=== PATIENT | female | born 1965 ===

== ENCOUNTER 2017-03-19 14:33 | Emergency (ER) | payer MEDICAID ==
[2017-03-19 14:52] VITALS: BP 132/78; PULSE 73; RESP 20; TEMP 98.2; O2SAT 99
--- NOTE | 2017-03-19 15:42 | ED PDOC ---
HPI: Abdomen Time Seen by Provider: 03/19/17 15:30 Chief Complaint (Nursing): Abdominal Pain History Per: Patient History/Exam Limitations: no limitations Onset/Duration Of Symptoms: Gradual (6 weeks worse today) Current Symptoms Are (Timing): Still Present Severity: Mild Location Of Pain/Discomfort: Other (right flank rads to rlq) Quality Of Discomfort: Sharp Associated Symptoms: Nausea, Vomiting. denies: Fever, Chills, Diarrhea, Back Pain, Chest Pain, Constipation, Urinary Symptoms Exacerbating Factors: None Alleviating Factors: None Last Bowel Movement: Yesterday Additional History Per: Patient Additional Complaint(s): c/o ruq abd pain intermittently x6 weeks. pt also c/o vomiting, denies diarrhea Past Medical History Reviewed: Historical Data, Nursing Documentation, Vital Signs Vital Signs: Last Vital Signs Temp 98.2 F 03/19/17 14:48 Pulse 73 03/19/17 14:48 Resp 20 03/19/17 14:48 BP 132/78 03/19/17 14:48 Pulse Ox 99 03/19/17 15:44 - Medical History PMH: No Chronic Diseases - Living Arrangements Living Arrangements: With Family - Social History Current smoker - smoking cessation education provided: No - Allergies Allergies/Adverse Reactions: Allergies Allergy/AdvReac Type Severity Reaction Status Date / Time No Known Allergies Allergy Verified 03/19/17 14:48 Review of Systems ROS Statement: Except As Marked, All Systems Reviewed And Found Negative Constitutional: Negative for: Fever, Chills Cardiovascular: Negative for: Chest Pain, Palpitations Respiratory: Negative for: Cough, Shortness of Breath Gastrointestinal: Positive for: Nausea, Vomiting, Abdominal Pain Genitourinary Female: Negative for: Dysuria, Hematuria, Pelvic Pain Physical Exam - Reviewed Nursing Documentation Reviewed: Yes Vital Signs Reviewed: Yes - Physical Exam Appears: Positive for: Uncomfortable Head Exam: Positive for: ATRAUMATIC, NORMAL INSPECTION, NORMOCEPHALIC Eye Exam: Positive for: Normal appearance, EOMI Neck: Positive for: Normal, Painless ROM, Supple Cardiovascular/Chest: Positive for: Regular Rate, Rhythm, Chest Non Tender. Negative for: Edema, Gallop, Murmur, Bradycardia, Tachycardia, Ectopy Respiratory: Positive for: Normal Breath Sounds. Negative for: Decreased Breath Sounds, Accessory Muscle Use, Crackles, Rales, Rhonchi, Stridor, Wheezing Gastrointestinal/Abdominal: Positive for: Normal Exam, Bowel Sounds, Soft. Negative for: Tenderness Back: Positive for: Normal Inspection. Negative for: L CVA Tenderness, R CVA Tenderness Extremity: Positive for: Normal ROM. Negative for: Tenderness, Pedal Edema, Calf Tenderness, Capillary Refill, Deformity Neurologic/Psych: Positive for: Alert, asset administrator II-XII, Oriented. Negative for: Motor/Sensory Deficits - ECG ECG: Positive for: Interpreted By Me ECG Rhythm: Positive for: Normal QRS, Normal ST Segment, Sinus Rhythm. Negative for: ST/T Changes Interpretation Of Abn EKG: rate of 60 no evidence of ischemia O2 Sat by Pulse Oximetry: 99 Pulse Ox Interpretation: Normal - Radiology X-Ray: Interpreted by Me X-Ray Interpretation: No Acute Disease
[2017-03-19 16:30] LABS: BASO # 0.1 K/uL (0.0-0.2); BASO % 0.8 % (0.0-2.0); EOS # 0.1 K/uL (0.0-0.7); EOS % 0.6 % (0.0-4.0); HEMOGLOBIN 11.9 g/dL (12.0-16.0); LYMPH # 3.1 K/uL (1.0-4.3); LYMPH % 33.3 % (20.0-40.0); MEAN CELL VOLUME 88.9 fl (81.0-99.0); MEAN CORPUSCULAR HEMOGLOBIN 29.4 pg (27.0-31.0); MEAN CORPUSCULAR HGB CONC 33.1 g/dL (33.0-37.0); MEAN PLATELET VOLUME 8.1 fl (7.2-11.7); MONO # 0.7 K/uL (0.0-0.8); MONO % 7.2 % (0.0-10.0); NEUT # 5.5 K/uL (1.8-7.0); NEUT % 58.1 % (50.0-75.0); RBC 4.03 Mil/uL (3.80-5.20); RED CELL DISTRIBUTION WIDTH 14.8 % (11.5-14.5); WHITE BLOOD COUNT 9.4 K/uL (4.8-10.8)
[2017-03-19 16:47] LABS: ALB/GLOB RATIO 1.3 (1.0-2.1); ALBUMIN 3.8 g/dL (3.5-5.0); ALT/SGPT 39 U/L (9-52); AMYLASE 81 U/L (30-110); AST/SGOT 23 U/L (14-36); BLOOD UREA NITROGEN 15 mg/dl (7-17); CALCIUM 9.1 mg/dL (8.4-10.2); GFR AFRICAN-AMERICAN > 60; GFR NON-AFRICAN AMERICAN > 60; LIPASE 51 U/L (23-300)
[2017-03-19 16:55] LABS: SQUAMOUS EPITHIAL 2 /hpf (0-5); URINE BILIRUBIN NEGATIVE (NEGATIVE); URINE BLOOD NEGATIVE (NEGATIVE); URINE CLARITY SLIGHTY-CLOUDY (Clear); URINE COLOR YELLOW (YELLOW); URINE GLUCOSE (UA) NEG (Normal); URINE LEUKOCYTE ESTERASE NEG Leu/uL (Negative); URINE NITRATE NEGATIVE (NEGATIVE); URINE PROTEIN NEGATIVE (NEGATIVE); URINE UROBILINOGEN 0.2-1.0 mg/dL (0.2-1.0)
--- NOTE | 2017-03-19 18:29 | US ---
HISTORY: pain COMPARISON: CT abdomen and pelvis without oral or IV contrast performed 03/19/17 TECHNIQUE: Sonographic evaluation of the right upper quadrant of the abdomen. FINDINGS: LIVER: Measures 17.0 cm in length. Echogenic liver may be seen in setting of hepatic parenchymal disease or fatty infiltration. No focal hepatic mass identified. The main portal vein appears patent with normal directional flow. No intrahepatic bile duct dilatation. GALLBLADDER: The gallbladder limits evaluation. Gallstones. Wall thickness cannot be adequately assessed. Negative sonographic Degroot's sign as assessed by the integrated circuit fabricator. COMMON BILE DUCT: Measures 5 mm. PANCREAS: Not well-visualized. RIGHT KIDNEY: Measures 11.1 x 4.9 x 4.0 cm. No obstructing calculus or hydronephrosis identified. AORTA: Limited visualization appears grossly unremarkable. IVC: Limited visualization appears grossly unremarkable. OTHER FINDINGS: None . IMPRESSION: Hepatic steatosis. Contracted gallbladder limits evaluation. Cholelithiasis. Gallbladder wall thickness cannot be adequately assessed. Negative sonographic Degroot's sign as assessed by the integrated circuit fabricator.
--- NOTE | 2017-03-19 18:35 | RAD ---
HISTORY: abd pain COMPARISON: None available TECHNIQUE: Chest, one view. FINDINGS: Emanation limited by habitus. LUNGS: No focal consolidation. Please note that chest x-ray has limited sensitivity for the detection of pulmonary masses. PLEURA: No significant pleural effusion identified. No definite pneumothorax . CARDIOVASCULAR: The cardiomediastinal silhouette appears within normal limits of size. OSSEOUS STRUCTURES: No acute osseous abnormality identified. VISUALIZED UPPER ABDOMEN: Unremarkable. OTHER FINDINGS: None. IMPRESSION: No focal consolidation, significant pleural effusion, or definite pneumothorax identified.
--- NOTE | 2017-03-19 18:44 | CT ---
PROCEDURE: CT Abdomen and Pelvis without intravenous contrast HISTORY: R flank pain r/o renal stone COMPARISON: None. TECHNIQUE: Technique. Contrast Dose: Radiation dose: Total exam DLP = mGy-cm. This CT exam was performed using one or more of the following dose reduction techniques: Automated exposure control, adjustment of the mA and/or kV according to patient size, and/or use of iterative reconstruction technique. FINDINGS: LOWER THORAX: Unremarkable. LIVER: Unremarkable. No gross lesion or ductal dilatation. GALLBLADDER AND BILE DUCTS: Gallstones.. PANCREAS: Unremarkable. No gross lesion or ductal dilatation. SPLEEN: Unremarkable. ADRENALS: Unremarkable. No mass. KIDNEYS AND URETERS: Unremarkable. No hydronephrosis. No solid mass. VASCULATURE: Unremarkable. No aortic aneurysm. BOWEL: Unremarkable. No obstruction. No gross mural thickening. APPENDIX: Unremarkable. Normal appendix. PERITONEUM: Unremarkable. No free fluid. No free air. LYMPH NODES: Unremarkable. No enlarged lymph nodes. BLADDER: Unremarkable. REPRODUCTIVE: Unremarkable. BONES: No acute fracture. OTHER FINDINGS: None. IMPRESSION: No hydronephrosis or renal calculi.
--- NOTE | 2017-03-19 19:56 | ED PDOC ---
- Laboratory Results Result Diagrams: 03/19/17 16:19 03/19/17 16:19 - ECG O2 Sat by Pulse Oximetry: 99 Pulse Ox Interpretation: Normal Medical Decision Making Medical Decision Making: recd on endorsement from Dr Roberto 515pm pending imaging. Accession No. : [id number] Patient Name / ID : MUMTAZ BONILLA / [id number] Exam Date : 03/19/2017 17:41:11 ( Approved ) Study Comment : Sex / Age : F / 51Y Creator : Mayuri Mario MD Dictator : Mayuri Mario MD Senior Abap Developer : Substitute Nurse : Mayuri Mario MD Approver2 : Report Date : 03/19/2017 18:28:08 My Comment : HISTORY: pain COMPARISON: CT abdomen and pelvis without oral or IV contrast performed 03/19/17 TECHNIQUE: Sonographic evaluation of the right upper quadrant of the abdomen. FINDINGS: LIVER: Measures 17.0 cm in length. Echogenic liver may be seen in setting of hepatic parenchymal disease or fatty infiltration. No focal hepatic mass identified. The main portal vein appears patent with normal directional flow. No intrahepatic bile duct dilatation. GALLBLADDER: The gallbladder limits evaluation. Gallstones. Wall thickness cannot be adequately assessed. Negative sonographic Degroot's sign as assessed by the electric shovel operator. COMMON BILE DUCT: Measures 5 mm. PANCREAS: Not well-visualized. RIGHT KIDNEY: Measures 11.1 x 4.9 x 4.0 cm. No obstructing calculus or hydronephrosis identified. AORTA: Limited visualization appears grossly unremarkable. IVC: Limited visualization appears grossly unremarkable. OTHER FINDINGS: None . IMPRESSION: Hepatic steatosis. Contracted gallbladder limits evaluation. Cholelithiasis. Gallbladder wall thickness cannot be adequately assessed. Negative sonographic Degroot's sign as assessed by the electric shovel operator. Accession No. : [id number] Patient Name / ID : MUMTAZ BONILLA / [id number] Exam Date : 03/19/2017 18:01:10 ( Approved ) Study Comment : Sex / Age : F / 51Y Creator : Travon Sethi MD Dictator : Travon Sethi MD Senior Abap Developer : Substitute Nurse : Travon Sethi MD Approver2 : Report Date : 03/19/2017 18:41:57 My Comment : PROCEDURE: CT Abdomen and Pelvis without intravenous contrast HISTORY: R flank pain r/o renal stone COMPARISON: None. TECHNIQUE: Technique. Contrast Dose: Radiation dose: Total exam DLP = mGy-cm. This CT exam was performed using one or more of the following dose reduction techniques: Automated exposure control, adjustment of the mA and/or kV according to patient size, and/or use of iterative reconstruction technique. FINDINGS: LOWER THORAX: Unremarkable. LIVER: Unremarkable. No gross lesion or ductal dilatation. GALLBLADDER AND BILE DUCTS: Gallstones.. PANCREAS: Unremarkable. No gross lesion or ductal dilatation. SPLEEN: Unremarkable. ADRENALS: Unremarkable. No mass. KIDNEYS AND URETERS: Unremarkable. No hydronephrosis. No solid mass. VASCULATURE: Unremarkable. No aortic aneurysm. BOWEL: Unremarkable. No obstruction. No gross mural thickening. APPENDIX: Unremarkable. Normal appendix. PERITONEUM: Unremarkable. No free fluid. No free air. LYMPH NODES: Unremarkable. No enlarged lymph nodes. BLADDER: Unremarkable. REPRODUCTIVE: Unremarkable. BONES: No acute fracture. OTHER FINDINGS: None. IMPRESSION: No hydronephrosis or renal calculi. \ Pt educated on results, pain medication and antiemetic Rx provided. Importance of followup w GI and surgery stressed. Return to ER for any worse or new symptoms. Disposition - Clinical Impression Clinical Impression: Cholelithiases, Abdominal pain - POA Present On Arrival: None - Disposition Referrals: [facility] [Outside] Randy Peguero MD [Staff Provider] - Disposition: Routine/Home Disposition Time: 19:56 Condition: STABLE Additional Instructions: Return to ER for any worse or new symptoms. See surgeon soon to discuss options for gallstone management. Delay in seeing specialist can cause significant complications. Prescriptions: Ondansetron [Zofran] 4 mg PO Q6H PRN #10 tab PRN Reason: Nausea/Vomiting traMADol/Acetaminophen [Ultracet 325 MG-37.5 MG] 1 tab PO Q4 PRN #12 tab PRN Reason: Pain, Moderate (4-7) Instructions: Gallstones (ED), Abdominal Pain (ED) Forms: [employer] (Portuguese)
--- NOTE | 2017-03-20 10:11 | CARD ---
APPROVED REPORT EKG Measurement Heart [id number] <Conclusion> Normal sinus rhythm Normal ECG
== END 2017-03-19 20:24 | disposition home or self-care (01) ==
LOC: H.ER 14:33
DX: K80.20 Calculus of gallbladder without cholecystitis without obstruction (principal)
CPT/HCPCS: 71010; 74176; 76705; 80053; 81003; 82150; 83690; 84484; 85025; 93005; 96374; 99284; J2270

== ENCOUNTER 2017-05-17 12:34 | Day surgery (SDC) | payer SELFPAY ==
[2017-05-15 10:34] VITALS: BMI 42.5
[2017-05-17] MEDS ORDERED: Propofol 10 mg/ml Inj (20 ML) ONE (12:52)
[2017-05-17] MEDS ORDERED: Lidocaine Hydrochloride 5 ML INJ ONE (12:52)
[2017-05-17] MEDS ORDERED: Succinylcholine 200 mg/10 ml Inj IV ONE (12:52)
[2017-05-17] MEDS ORDERED: Rocuronium 10 mg/ml (5 ml) ONE (12:52)
[2017-05-17] MEDS ORDERED: Phenylephrine 10 mg/ml Inj ONE (12:54)
[2017-05-17] MEDS ORDERED: Dexamethasone 4 mg/1 ml ONE ×2 (12:57→15:34)
[2017-05-17] MEDS ORDERED: Lidocaine 4% (Laryng-O-Jet) Kit MM ONE (12:57)
[2017-05-17 13:36] VITALS: RESP 18
[2017-05-17 14:05] LABS: MEAN CELL VOLUME 89.3 fl (81.0-99.0); MEAN CORPUSCULAR HEMOGLOBIN 29.4 pg (27.0-31.0); MEAN CORPUSCULAR HGB CONC 32.9 g/dL (33.0-37.0); RED CELL DISTRIBUTION WIDTH 14.2 % (11.5-14.5)
[2017-05-17] MEDS ORDERED: Lactated Ringer's 1,000 ML IV ONE (14:05)
[2017-05-17] MEDS ORDERED: Midazolam 2 MG/2 ML VIAL ONE (14:05)
[2017-05-17 14:23] LABS: BLOOD UREA NITROGEN 16 mg/dl (7-17); CALCIUM 8.8 mg/dL (8.4-10.2); CARBON DIOXIDE 24 mmol/L (22-30); CHLORIDE 107 mmol/L (98-107); GFR AFRICAN-AMERICAN > 60; GLUCOSE,RANDOM 92 mg/dL (65-105); POTASSIUM 3.9 MMOL/L (3.6-5.0); SODIUM 139 mmol/l (132-148)
[2017-05-17] MEDS ORDERED: Neostigmine Methylsulfate 3mg/3ml Syringe IV ONE (15:22)
[2017-05-17] MEDS ORDERED: Neostigmine Methylsulfate 2 MG/2 ML ML IV ONE (15:22)
[2017-05-17] MEDS ORDERED: HYDROmorphone 0.5 mg/0.5 ml ISec IVP PRN (15:30)
--- NOTE | 2017-05-17 16:05 | PCM.SURG1 ---
Surgeon's Initial Post Op Note - Surgeon's Notes Surgeon: Dr. Aminata Acosta Aerial Erector: Ysabel Martin, PGY2; Valentino Bello, PGY1 Pre-Operative Diagnosis: Cholelithiasis, biliary colic Operative Findings: see full operative report Post-Operative Diagnosis: same Operation Performed: laparoscopic cholecystectomy Specimen/Specimens Removed: gallbladder Estimated Blood Loss: EBL {In ML}: 10 Date of Surgery/Procedure: 05/17/17 Time of Surgery/Procedure: 13:50
[2017-05-17] MEDS ORDERED: Oxycodone/Acetaminophen 5/325 mg Tab PO PRN (16:07)
--- NOTE | 2017-05-17 16:07 | PCM.SURG1 ---
Surgeon's Initial Post Op Note - Surgeon's Notes Surgeon: Dr. Acosta Retirement Consultant: Dr. Martin PGY2, PGY1 Pre-Operative Diagnosis: Symptomatic Cholelithiasis Operative Findings: see op note Post-Operative Diagnosis: as above Operation Performed: Laparoscopic cholecystectomy Specimen/Specimens Removed: gallbladder Estimated Blood Loss: EBL {In ML}: 10 Date of Surgery/Procedure: 05/17/17 Time of Surgery/Procedure: 15:00
--- NOTE | 2017-05-17 16:12 | CP.SDSHP ---
Same Day Surgery H & P - Allergies Allergies: Allergies No Known Allergies Allergy (Verified 03/19/17 14:48) - Physical Exam Vital Signs: Vital Signs 05/17/17 13:34 Temperature 98.2 F Pulse Rate 65 Respiratory 18 Rate Blood Pressure 120/61 O2 Sat by Pulse 96 Oximetry Short Stay Discharge - Short Stay Discharge Admitting Diagnosis/Reason for Visit: K80.20 Disposition: HOME/ ROUTINE Progress Note/Discharge Note with Instructions: 51F came to same day surgery. Laparoscopic cholecystectomy was performed. Patient tolerated procedure well and was discharge to PACU in good condition. Can shower tomorrow. steri-strips are placed underneath the bandage, will fall off on its own. Do not soak in bath or swim in ocean. No heavy lifting gerater than 10lbs for 4-6 weeks. If fever greater than 100.4 take Tylenol or Motrin, if fever continues to persist go to the ER. Follow up with Dr. Acosta in 1-2 weeks in clinic.
[2017-05-17 19:21] VITALS: BP 115/73; PULSE 74; TEMP 98.7; O2SAT 96
--- NOTE | 2017-05-18 14:08 | OP ---
PROCEDURE DATE: 05/17/2017 PREOPERATIVE DIAGNOSIS: Cholelithiasis. POSTOPERATIVE DIAGNOSIS: Cholelithiasis. PROCEDURE: Laparoscopic cholecystectomy. SURGEON: Aminata Acosta MD ASSISTANTS: Dr. Martin and Dr. Bello TYPE OF ANESTHESIA: General. ANESTHESIA ADMINISTERED BY: Rolo Riojas MD DESCRIPTION OF OPERATION: With the patient in the supine position under adequate general anesthesia, the abdomen was prepped and draped in the usual sterile manner. Veress needle puncture was performed at the umbilicus with insufflation to 15 cm water pressure of CO2 and a 10-mm laparoscopic trocar was inserted via an infraumbilical incision under direct vision. Additional trocars were inserted in the epigastrium and right costal margin. The gallbladder was visualized. The fundus was grasped and elevated. The gallbladder was not acutely inflamed. Adhesions of the omentum to the peritoneal surface of the gallbladder was gently taken down to expose the infundibulum and the infundibulum was grasped and retracted laterally. Tissue surrounding the cystic duct was dissected away to expose the cystic duct and the cystic duct was cleared down towards the junction with the common bile duct. The cystic duct was then viewed anteriorly and posteriorly and the cystic duct was then triply clipped and divided. The cystic artery was then identified and dissected. The cystic artery was triply clipped and divided and the gallbladder was dissected free of the liver bed using electrocautery. The liver bed was inspected for hemostasis and the dissection was completed. The gallbladder was placed in a specimen retrieval bag and removed via the umbilical port site. It was noted to contain at least two 1-cm stones. The right upper quadrant was irrigated and suctioned. The pneumoperitoneum was released and the trocars were removed. The umbilical port site was closed with a [id number] fascial suture of 0 Vicryl. All incisions were closed with 4-0 Monocryl subcuticular sutures and Steri-Strips. Dry sterile dressings were applied. The patient tolerated the procedure well and transferred to recovery room in stable condition. Estimated blood loss for the procedure was 10 mL. Aminata Acosta MD [facility] # [id number]
== END 2017-05-17 20:08 | disposition home or self-care (01) ==
LOC: H.OPSURG 12:34
PROVIDERS: ATTEND Specialist
DX: K80.20 Calculus of gallbladder without cholecystitis without obstruction (principal)
CPT/HCPCS: 36415; 47562; 80048; 85027; 88304; J0330; J0690; J1100; J1170; J2250; J2370; J2405; J2704; J2710; J2765; J3010; J7120